=== PATIENT | female | born 1970 | race Caucasian/White ===

== ENCOUNTER 2016-11-05 14:55 | Inpatient (IN) | payer SELFPAY ==
[~2016-11-05] VITALS: Ht 170.2 cm; Wt 171.0 kg
[2016-11-08] MEDS ORDERED: FLUMADINE100 MG PO (13:57)
[2016-11-08] MEDS ORDERED: LOPRESSOR50 MG PO (14:01)
[2016-11-08] MEDS ORDERED: IBUPROFEN600 MG PO (14:02)
[2016-11-08] MEDS ORDERED: AUGMENTIN 875-1 EACH PO (14:05)
[2016-11-08] MEDS ORDERED: DIFLUCAN100 MG PO (14:10)
== END 2016-11-08 14:29 | disposition short-term general hospital (02) | DRG 872 ==
LOC: ER 14:55 → RAD 14:55 → IP 18:05 → ER 18:05 → IP 11-08 14:29
PROVIDERS: ADMIT Family Medicine
DX: A41.9 Sepsis, unspecified organism (principal); L03.119 Cellulitis of unspecified part of limb; B96.89 Other specified bacterial agents as the cause of diseases classified elsewhere; D72.829 Elevated white blood cell count, unspecified; L30.8 Other specified dermatitis; Z86.19 Personal history of other infectious and parasitic diseases; B37.2 Candidiasis of skin and nail; I95.9 Hypotension, unspecified; F17.210 Nicotine dependence, cigarettes, uncomplicated; G62.9 Polyneuropathy, unspecified
CPT/HCPCS: G0477; J1650; J2060; J2405; J2543

== ENCOUNTER → 2016-11-22 | Outpatient (CLI) | payer SELFPAY ==
[~2016-11-22] MED LIST: AUGMENTIN 875-1 EACH PO; DIFLUCAN100 MG PO; FLUMADINE100 MG PO; IBUPROFEN600 MG PO; LOPRESSOR50 MG PO
== END | disposition short-term general hospital (02) ==
LOC: CLVASC 09:09 → CLCARD 09:09
DX: L03.116 Cellulitis of left lower limb (principal); I89.0 Lymphedema, not elsewhere classified; I73.9 Peripheral vascular disease, unspecified